=== PATIENT | female | born 1980 | race Caucasian/White ===

== ENCOUNTER → 2016-08-03 | Outpatient (CLI) | payer BC, OTHER ==
[2016-08-03 16:09] LABS: Basophils # (A) 0.1 k/uL (0-0.2); Basophils % (A) 1 %; CH 31.8; CHCM 34.9; Eosinophils # (A) 0.1 k/uL (0-0.7); Eosinophils % (A) 1 %; HCT 43.4 % (34.0-46.0); HDW 2.63; HGB 14.8 gm/dL (11.4-16.0); Luc # (Auto) 0.18; Luc % (Auto) 2; Lymphocytes # (A) 2.4 k/uL (1.0-4.8); Lymphocytes % (A) 29 %; MCH 31.2 pg (25.0-35.0); MCHC 34.1 g/dL (31.0-37.0); MCV 91.4 fL (80.0-100.0); Monocytes # (A) 0.3 k/uL (0-1.0); Monocytes % (A) 3 %; Neutrophils # (A) 5.4 k/uL (1.3-7.7); Neutrophils % (A) 64 %; RBC 4.75 m/uL (3.80-5.40); RDW 12.7 % (11.5-15.5); WBC 8.4 k/uL (3.8-10.6); WBC (Perox) 8.63
[2016-08-03 16:22] LABS: ALT 23 U/L (9-52); AST 26 U/L (14-36); Alkaline Phosphatase 72 U/L (38-126); Anion Gap 14 mmol/L; Blood Urea Nitrogen 10 mg/dL (7-17); Calcium 9.8 mg/dL (8.4-10.2); Carbon Dioxide 24 mmol/L (22-30); Chloride 103 mmol/L (98-107); Glucose 114 mg/dL (74-99); Non-African American GFR(MDRD) >60 (>60 ml/min/1.73 sqM); Potassium 4.2 mmol/L (3.5-5.1); Sodium 141 mmol/L (137-145); Total Bilirubin 0.9 mg/dL (0.2-1.3); Total Protein 8.1 g/dL (6.3-8.2)
== END | disposition home or self-care (01) ==
LOC: LABWHC1 15:53
PROVIDERS: ATTEND Family Medicine
DX: E01.0 Iodine-deficiency related diffuse (endemic) goiter (principal); F41.9 Anxiety disorder, unspecified; Z13.21 Encounter for screening for nutritional disorder
CPT/HCPCS: 36415; 80053; 82306; 84443; 85025

== ENCOUNTER 2016-09-15 08:13 | Day surgery (SDC) | payer BC, OTHER ==
[2016-09-14 12:50] VITALS: BMI 34.0
[2016-09-15 08:40] VITALS: TEMP 97.8
[2016-09-15] MEDS ORDERED: LIDOCAINE 1% 20 ML VIAL (10MG/ML) FOR IV START INTRADERMA ONE (09:04)
[2016-09-15] MEDS ORDERED: LACTATED RINGERS 1,000 ML IV ONE (09:04)
[2016-09-15] MEDS ORDERED: PROPOFOL 10 MG/ML 20 ML VIAL IV ONE (09:18)
[2016-09-15] MEDS ORDERED: LIDOCAINE 1% INJ 10MG/ML (20 ML MDV) ONE (09:18)
--- NOTE | 2016-09-15 09:51 | P.PCN ---
Date of Procedure: 09/15/16 Preoperative Diagnosis: Blood per rectum Postoperative Diagnosis: Patchy areas of inflammation noted in the colon at 40 cm 30 cm and rectum ,as well as polyp at 20 cm Procedure(s) Performed: Colonoscopy with biopsies and polypectomy Anesthesia: MAC Surgeon: Kira Paz Estimated Blood Loss (ml): 1 IV fluids (ml): 450 Pathology: other (Mucosal biopsy at 30 cm and 40 cm and polypectomy at 20 cm mucosal biopsy of rectum) Condition: stable Disposition: PACU Indications for Procedure: Blood per rectum Operative Findings: Patchy inflammation of the colon and polyp at 20 cm Description of Procedure: Patient was taken to the endoscopy suite and following sedation rectal exam was performed patient was noted to have good sphincter tone no masses. The colonoscope was passed through the anus into the rectum. Was passed into the sigmoid colon up to splenic flexure transverse colon hepatic flexure right colon down to the area of the cecum. Approximately 10 minutes were taken to withdraw the scope from the area of the cecum to the rectum. No lesions of concern were noted in the cecum or right colon. No lesions of concern in the transverse colon. As the scope was withdrawn the patient was noted to have patchy inflammation at 40 cm. This was biopsied with cold biopsy forceps. Additionally there was noted to be patchy inflammation at 20 cm which was biopsied as well. As the scope was withdrawn and the patient was noted to have a polyp at 20 cm which was which was removed with snare polypectomy and retrieved. The scope was brought down into the rectum where it was noted to have inflammation in the rectum and biopsy was obtained. Scope was retroflexed inflammation was identified no other lesions of concern Impression/plan: Patchy inflammation of the colon biopsies obtained 2. Polyp removed and retrieved Plan: Await results of biopsies suspect inflammatory bowel disease
--- NOTE | 2016-09-15 09:51 | P.DS ---
Providers Attending physician: Kira Paz Primary care physician: Benjamín Antunez Plan - Discharge Summary Discharge Medication List Biotin 10,000 mcg PO DAILY 09/14/16 [History] Cholecalciferol [Vitamin D3] 2,000 unit PO DAILY 09/14/16 [History] Ergocalciferol [Vitamin D2] 50,000 unit PO Q30D 09/14/16 [History] Fish Oil/Dha/Epa [Fish Oil 1,200 mg Fish Oil] 1 each PO DAILY 09/14/16 [History] Garciakilo Herreraogia 2 tab PO DAILY 09/14/16 [History] Follow up Appointment(s)/Referral(s): Kira Paz MD [STAFF PHYSICIAN] - 1 Week Discharge Disposition: HOME SELF-CARE
[2016-09-15 09:53] VITALS: RESP 18
[2016-09-15 10:33] VITALS: BP 124/87; PULSE 76
== END 2016-09-15 10:40 | disposition home or self-care (01) ==
LOC: ORWHC2ENDO 08:13
PROVIDERS: ATTEND Surgery
DX: K52.9 Noninfective gastroenteritis and colitis, unspecified (principal); K63.5 Polyp of colon; Z87.19 Personal history of other diseases of the digestive system; Z91.040 Latex allergy status; Z79.899 Other long term (current) drug therapy
CPT/HCPCS: 81025; 88305; 45380; 45385; J2001; J2704